=== PATIENT | female | born 1965 | race Caucasian/White ===

== ENCOUNTER 2016-12-26 09:14 | Outpatient (CLI) ==
[2014-12-22 10:04] VITALS: BMI 30.7
[2016-12-26 09:42] LABS: BASOPHILS % (AUTO) 0.8 % (0.0-3.0); EOSINOPHILS # (AUTO) 0.1 K/ul (0.0-0.7); EOSINOPHILS % (AUTO) 1.6 % (0.0-7.0); HEMATOCRIT 38.2 % (37.0-47.0); HEMOGLOBIN 13.5 g/dl (12.0-16.0); IMMATURE GRANULOCYTE % (AUTO) 0.2 % (0.0-5.0); LYMPHOCYTES # (AUTO) 2.5 K/uL (0.60-3.4); LYMPHOCYTES % (AUTO) 48.2 (10.0-50.0); MEAN CORPUSCULAR HEMOGLOBIN 31.4 pg (27.0-31.0); MEAN CORPUSCULAR HGB CONC 35.3 (31.8-35.4); MEAN CORPUSCULAR VOLUME 88.8 fl (81.0-99.0); MONOCYTES # (AUTO) 0.3 K/uL (0.4-2.0); MONOCYTES % (AUTO) 6.1 (0-10); NEUTROPHILS # (AUTO) 2.2 K/ul (2.0-6.9); NEUTROPHILS % (AUTO) 43.1; PLATELET COUNT 231 10^3/uL (140-440)
[2016-12-26 10:22] LABS: ALBUMIN/GLOBULIN RATIO 1.05; ANION GAP 14.6; BILIRUBIN,TOTAL 0.56 mg/dL (0.00-1.20); BUN/CREATININE RATIO 12.5; CALCIUM 9.9 mg/dL (8.2-10.2); CHOL/HDL RATIO 4.1 (4.5-5.5); CREATININE 0.88 mg/dL (0.60-1.30); POTASSIUM 3.6 mmol/L (3.5-5.10); TOTAL PROTEIN 7.8 g/dL (6.4-8.2)
== END 2016-12-26 09:15 | disposition home or self-care (01) ==
LOC: LAB 09:14
PROVIDERS: ATTEND Internal Medicine
DX: I10 Essential (primary) hypertension (principal); E78.5 Hyperlipidemia, unspecified; E55.9 Vitamin D deficiency, unspecified; D64.9 Anemia, unspecified; M19.90 Unspecified osteoarthritis, unspecified site
CPT/HCPCS: 36415; 80053; 80061; 83036; 84443; 85025

== ENCOUNTER 2017-06-26 09:13 | Outpatient (CLI) ==
[2014-12-22 10:04] VITALS: BMI 30.7
[2017-06-26 09:37] LABS: BASOPHILS % (AUTO) 0.6 % (0.0-3.0); EOSINOPHILS # (AUTO) 0.1 K/ul (0.0-0.7); EOSINOPHILS % (AUTO) 1.2 % (0.0-7.0); HEMATOCRIT 36.9 % (37.0-47.0); HEMOGLOBIN 13.3 g/dl (12.0-16.0); IMMATURE GRANULOCYTE % (AUTO) 0.2 % (0.0-5.0); LYMPHOCYTES # (AUTO) 2.1 K/uL (0.60-3.4); LYMPHOCYTES % (AUTO) 41.3 (10.0-50.0); MEAN CORPUSCULAR HEMOGLOBIN 31.5 pg (27.0-31.0); MEAN CORPUSCULAR VOLUME 87.4 fl (81.0-99.0); MONOCYTES # (AUTO) 0.3 K/uL (0.4-2.0); MONOCYTES % (AUTO) 5.9 (0-10); NEUTROPHILS # (AUTO) 2.6 K/ul (2.0-6.9); NEUTROPHILS % (AUTO) 50.8; PLATELET COUNT 234 10^3/uL (140-440); RED BLOOD COUNT 4.22 10^6/ul (4.20-5.40); WHITE BLOOD COUNT 5.08 K/ul (4.6-10.2)
[2017-06-26 10:12] LABS: ALBUMIN/GLOBULIN RATIO 1.11; ANION GAP 14.7; BILIRUBIN,TOTAL 0.41 mg/dL (0.00-1.20); BUN/CREATININE RATIO 11.36; CREATININE 0.88 mg/dL (0.60-1.30); POTASSIUM 3.7 mmol/L (3.5-5.10); TOTAL PROTEIN 7.6 g/dL (6.4-8.2)
== END 2017-06-26 09:14 | disposition home or self-care (01) ==
LOC: LAB 09:13
PROVIDERS: ATTEND Internal Medicine
DX: I10 Essential (primary) hypertension (principal); E78.5 Hyperlipidemia, unspecified; D64.9 Anemia, unspecified; E55.9 Vitamin D deficiency, unspecified; M19.90 Unspecified osteoarthritis, unspecified site
CPT/HCPCS: 36415; 80053; 80061; 83036; 84443; 85025

== ENCOUNTER 2017-09-04 12:57 | Emergency (ER) ==
[2017-09-04 13:09] VITALS: BP 132/75; TEMP 98.3; BMI 31.3
--- NOTE | 2017-09-04 16:18 | ED.PDOC ---
General ED Provider: Dr. DAE LEACH Chief Complaint: Bite Stated Complaint: Accidentally stepped on her pet dog who bit her on the right big toe. approx 5 hours ago. Dog is UTD on its shots. Time Seen by Physician: 16:08 Mode of Arrival: Walk-In Information Source: Patient Exam Limitations: No limitations Primary Care Provider: ROBERTO QUINN Nursing and Triage Documentation Reviewed and Agree: Yes Trauma/Injury Complaint Exam - Bite Injury Complaint/Exam Location of Bite: right big toe Bite Occured: 5 hourd ago Symptoms Are: Still present Type of Bite: Reports: Pet animal (dog) Animal Immunized: Reports: Yes Initial Severity: Mild Current Severity: Mild Character: Reports: Puncture Aggravating: Reports: None Alleviating: Reports: None Related History: Reports: Provoked Animal Available for Observation: Yes Animal Control Notified: Yes Infection/Sepsis Risk Factors: Present: Full Thickness-Puncture Bite Findings: Present: Tenderness (at bite sites only) Wound Description: Present: Puncture wound Drainage: Present: None ROM Painful at: none Differential Diagnoses: Puncture Review of Systems - Review Of Systems Constitutional: Reports: No symptoms Musculoskeletal: Reports: No symptoms (full ROM of big toe vs resistance without pain) Skin: Reports: Other (2 puncture wounds on anterior aspect of big toe proximal phalanx with local tenderness only. ) Neurological: Reports: No symptoms All Other Systems: Reviewed and Negative Past Medical History - Past Medical History Previously Healthy: Yes Endocrine: Reports: None Cardiovascular: Reports: None, Hypertension Respiratory: Reports: None Hematological: Reports: None Gastrointestinal: Reports: None Genitourinary: Reports: None Neuro/Psych: Reports: Anxiety Musculoskeletal: Reports: None Cancer: Reports: None Last Menstrual Period: unknown - Surgical History General Surgical History: Reports: None - Family History Family History: Reports: Unknown - Social History Smoking Status: Never smoker Hx Substance Use: No Alcohol Screening: None Lives: Alone - Immunizations Tetanus Shot up to Date: Yes (unknown) Influenza Vaccine within 12 Months: No Pneumococcal Vaccine up to Date: No Physical Exam - Physical Exam Appearance: Well-appearing, No pain distress, Well-nourished Ill-appearing: None Pain Distress: None Musculoskeletal: Normal strength, ROM intact, No edema, No calf tenderness Skin: Warm (2 puncture wounds on anterior right big toe proximal phalanx), Dry, Normal color Neurological: Sensation intact, Motor intact, Reflexes intact, Cranial nerves intact, Alert, Oriented Psychiatric: Affect appropriate, Mood appropriate Critical Care Note - Critical Care Note Total Time (mins): 0 Course - Course Vital Signs: Temp Pulse Resp BP Pulse Ox 09/04/17 12:57 98.3 F 92 H 20 132/75 97 Departure - Departure Time of Disposition: 16:29 Disposition: HOME SELF-CARE Discharge Problem: Dog bite Qualifiers: Encounter type: initial encounter Qualified Code(s): W54.0XXA - Bitten by dog, initial encounter Instructions: Animal Bite (ED) Condition: Good Pt referred to PMD for follow-up: No (see doctor if any problems) Allergies/Adverse Reactions: Allergies codeine Adverse Reaction (Verified 09/04/17 13:06) erythromycin base [Erythromycin Base] Adverse Reaction (Verified 09/04/17 13:06) hydrocodone Adverse Reaction (Verified 09/04/17 13:07) Home Medications: Ambulatory Orders Aspirin [Aspirin Chewable] 81 mg PO DAILYWM 11/21/13 Lisinopril/Hydrochlorothiazide [Lisinopril-Hctz 20-25 mg Tab] 1 each PO DAILY Lorazepam [Ativan] 0.5 mg PO BID 11/21/13 [place]-3 Fatty Acids/Fish Oil [Fish Oil 1,000 mg Capsule] 1 tab PO DAILY Cefdinir [Omnicef] 300 mg PO DAILY #5 capsule 09/04/17 Transfer Form Completed: Yes Disposition Discussed With: Patient
[2017-09-04] MEDS: BOOSTRIX IM ONE (16:34)
== END 2017-09-04 17:09 | disposition home or self-care (01) ==
LOC: ED 12:57
DX: S91.151A Open bite of right great toe without damage to nail, initial encounter (principal); W54.0XXA Bitten by dog, initial encounter
CPT/HCPCS: 90471; 90715; 99283

== ENCOUNTER 2017-12-25 10:22 | Outpatient (CLI) | END 2017-12-25 10:23 | disposition home or self-care (01) | LOC: LAB 10:22 | PROVIDERS: ATTEND Internal Medicine | DX: E55.9 Vitamin D deficiency, unspecified (principal); E78.5 Hyperlipidemia, unspecified; I10 Essential (primary) hypertension; E64.9 Sequelae of unspecified nutritional deficiency | CPT/HCPCS: 36415; 80053; 80061; 82607; 83036; 84443; 85025 ==

== ENCOUNTER 2018-06-26 08:58 | Outpatient (CLI) | END 2018-06-26 08:59 | disposition home or self-care (01) | LOC: LAB 08:58 | PROVIDERS: ATTEND Internal Medicine | DX: E78.5 Hyperlipidemia, unspecified (principal); I10 Essential (primary) hypertension | CPT/HCPCS: 36415; 80053; 80061; 82607; 83036; 84439; 84443; 85025 ==

== ENCOUNTER 2018-12-29 09:51 | Outpatient (CLI) | END 2018-12-29 09:52 | disposition home or self-care (01) | LOC: LAB 09:51 | PROVIDERS: ATTEND Internal Medicine | DX: E78.5 Hyperlipidemia, unspecified (principal); I10 Essential (primary) hypertension | CPT/HCPCS: 36415; 80053; 80061; 84439; 84443; 85025 ==